=== PATIENT | female | born 1960 | race Caucasian/White ===

== ENCOUNTER 2017-05-03 18:27 | Emergency (ER) | payer OTHER, MEDICAID ==
[2017-05-03 18:45] VITALS: TEMP 98.1
[2017-05-03] MEDS ORDERED: KETAMINE 100 MG/10 ML SYR IVP ONE (20:09)
[2017-05-03] MEDS ORDERED: DEXAMETHASONE 4 MG/ML VIAL IVP ONE (20:09)
[2017-05-03] MEDS ORDERED: LORazepam 2 MG/ML INJ IVP ONE (20:10)
[2017-05-03] MEDS ORDERED: OXYCODONE/APAP 5/325 TAB PO ONE (20:10)
--- NOTE | 2017-05-03 20:11 | EDPHY ---
H & P Time Seen by Provider: 05/03/17 19:57 HPI/ROS: CHIEF COMPLAINT: Back pain HISTORY OF PRESENT ILLNESS: Patient has history of chronic back pain and is seen by Dr. Josafat Mathews also [facility] for pain management. She is scheduled for an epidural steroid injection on the of this month. She typically takes Percocet and Flexeril and took 3 yesterday but none since last night. Her pain has been worse today in the right lower back radiating to her right hip and right outer leg. Symptoms severe and worse with any movement. REVIEW OF SYSTEMS: Eye: no change in vision ENT: no sore throat Cardiac: no chest pain or syncope Pulmonary: no cough or SOB Abdomen: no vomiting, diarrhea, abdominal pain Musculoskeletal: HPI, no recent injury fall or direct trauma. Skin: no rash Neuro: no headache, no weakness or numbness in lower extremities. Constitutional: no fever : no urinary symptoms, no urinary or fecal incontinence. A comprehensive 10 point review of systems is otherwise negative aside from elements mentioned in the history of present illness. PAST MEDICAL HISTORY: Chronic back pain, tubal ligation Social history: Former smoker, quit 1 month ago. No IV drugs General Appearance: Alert and conversant, cooperative. Eyes: No scleral icterus. ENT, Mouth: Normal mucous membranes. Respiratory: Normal respiratory effort, breath sounds equal, lungs are clear to auscultation. Cardiovascular: Regular rate and rhythm. Gastrointestinal: Abdomen is soft and non tender. No pulsatile mass. Neurological: Alert and oriented x3. Normally conversant. Face symmetric, normal movement and sensation in all extremities. No clonus, toes downgoing bilaterally, patellar reflexes 2 to 3+ bilaterally. Skin: Warm and dry, no rashes. Musculoskeletal: No peripheral edema and no joint swelling. No midline spine tenderness. Has tenderness over the right sciatic notch. Psychiatric: Patient appears very anxious. Emergency Department course/MDM: Patient is adamant she cannot take any nonsteroidal because of a previous kidney problem. She typically takes Percocet. Plan for 2 oral Percocet, 1 mg IV Ativan, 20 mg IV ketamine, 8 mg IV dexamethasone. Last MRI 2 months ago but not at this hospital. Did not show surgical lesion at that time. 2130: Patient was able to get up and go to the bathroom. She feels a lot more comfortable. She feels that would be reasonable to let her go home at this point she feels a lot better with a lot less pain. I think it is low likelihood she has an acute neurosurgical emergency. Smoking Status: Former smoker Constitutional: Initial Vital Signs Temperature (C) 36.7 C 05/03/17 18:42 Heart Rate 54 L 05/03/17 18:42 Respiratory Rate 18 05/03/17 18:42 Blood Pressure 120/72 05/03/17 18:42 O2 Sat (%) 98 05/03/17 18:42 O2 Delivery Mode Room Air O2 (L/minute) 2 Allergies/Adverse Reactions: No Known Allergies Allergy (Verified 05/03/17 18:40) Home Medications: Medication Instructions Recorded Amitriptyline HCl 75 mg PO HS PRN 01/09/15 Diclofenac Sodium [Voltaren 75 MG 75 mg PO DAILY 01/09/15 (*)] Omeprazole [Prilosec] 40 mg PO DAILY 01/09/15 Ibuprofen 600 mg PO Q6H #30 capsule 01/15/15 oxyCODONE/APAP 5/325 [Percocet 1 - 2 tab PO Q4 PRN #30 tab 01/15/15 5/325 (*)] Chantix 05/03/17 FLUoxetine 05/03/17 Medical Decision Making Differential Diagnosis: Differential diagnosis considered for back pain including but not limited to muscular pain, herniated disc, spine fracture, intra-abdominal causes and urinary tract infection. - Data Points Laboratory Results: Laboratory Results 05/03/17 20:10 05/03/17 20:10 05/03/17 05/03/17 20:10 20:10 WBC 9.11 10^3/uL 10^3/uL (3.80-9.50) RBC 5.13 10^6/uL 10^6/uL (4.18-5.33) Hgb 14.8 g/dL g/dL (12.6-16.3) Hct 44.5 % % (38.0-47.0) MCV 86.7 fL fL (81.5-99.8) MCH 28.8 pg pg (27.9-34.1) MCHC 33.3 g/dL g/dL (32.4-36.7) RDW 13.5 % % (11.5-15.2) Plt Count 267 10^3/uL 10^3/uL (150-400) MPV 9.7 fL fL (8.7-11.7) Neut % (Auto) 63.0 % % (39.3-74.2) Lymph % (Auto) 27.0 % % (15.0-45.0) Sheridan % (Auto) 7.5 % % (4.5-13.0) Eos % (Auto) 1.4 % % (0.6-7.6) Baso % (Auto) 0.7 % % (0.3-1.7) Nucleat RBC Rel Count 0.0 % % (0.0-0.2) Absolute Neuts (auto) 5.74 10^3/uL 10^3/uL (1.70-6.50) Absolute Lymphs (auto) 2.46 10^3/uL 10^3/uL (1.00-3.00) Absolute Monos (auto) 0.68 10^3/uL 10^3/uL (0.30-0.80) Absolute Eos (auto) 0.13 10^3/uL 10^3/uL (0.03-0.40) Absolute Basos (auto) 0.06 10^3/uL 10^3/uL (0.02-0.10) Absolute Nucleated RBC 0.00 10^3/uL 10^3/uL (0-0.01) Immature Gran % 0.4 % % (0.0-1.1) Immature Gran # 0.04 10^3/uL 10^3/uL (0.00-0.10) Sodium 133 mEq/L L mEq/L (134-144) Potassium 4.5 mEq/L mEq/L (3.5-5.2) Chloride 103 mEq/L mEq/L (97-110) Carbon Dioxide 20 mEq/l L mEq/l (22-31) Anion Gap 10 mEq/L mEq/L (8-16) BUN 14 mg/dL mg/dL (7-23) Creatinine 0.8 mg/dL mg/dL (0.6-1.0) Estimated GFR > 60 Glucose 85 mg/dL mg/dL (70-100) Calcium 9.5 mg/dL mg/dL (8.5-10.4) Specimen Hemolysis 100 Medications Given: Discontinued Medications Dexamethasone (Decadron Injection) 8 mg IVP EDNOW ONE Stop: 05/03/17 20:10 Last Admin: 05/03/17 20:24 Dose: 8 mg Ketamine HCl (Ketamine) 20 mg IVP EDNOW ONE Stop: 05/03/17 20:10 Last Admin: 05/03/17 20:25 Dose: 20 mg Lorazepam (Ativan Injection) 1 mg IVP EDNOW ONE Stop: 05/03/17 20:11 Last Admin: 05/03/17 20:24 Dose: 1 mg Oxycodone/Acetaminophen (Percocet 5/325) 2 tab PO EDNOW ONE Stop: 05/03/17 20:11 Last Admin: 05/03/17 20:24 Dose: 2 tab Departure - Departure Disposition: Home, Routine, Self-Care Clinical Impression: Acute low back pain Qualifiers: Back pain laterality: right Sciatica presence: with sciatica Sciatica laterality: sciatica of right side Qualified Code(s): M54.41 - Lumbago with sciatica, right side Condition: Good Instructions: Acute Low Back Pain (ED) Referrals: Casey Garcia MD [Primary Care Provider] - As per Instructions
[2017-05-03 20:16] LABS: % IMMATURE GRANULYOCYTES 0.4 % (0.0-1.1); ABSOLUTE IMMATURE GRANULOCYTES 0.04 10^3/uL (0.00-0.10); ADD DIFF? NO; ADD MORPH? NO; ADD SCAN? NO; ATYPICAL LYMPHOCYTE FLAG 10 (0-99); FRAGMENT RBC FLAG 0 (0-99); HEMATOCRIT 44.5 % (38.0-47.0); HEMOGLOBIN 14.8 g/dL (12.6-16.3); LEFT SHIFT FLG 0 (0-99); LIPEMIA HEMOLYSIS FLAG 80 (0-99); MEAN CELL HEMOGLOBIN 28.8 pg (27.9-34.1); MEAN CELL HEMOGLOBIN CONCENTR. 33.3 g/dL (32.4-36.7); MEAN CELL VOLUME 86.7 fL (81.5-99.8); MEAN PLATELET VOLUME 9.7 fL (8.7-11.7); PLATELET CLUMPS FLAG 0 (0-99); PLATELET COUNT 267 10^3/uL (150-400); RED BLOOD CELL COUNT 5.13 10^6/uL (4.18-5.33); RED CELL DISTRIBUTION WIDTH 13.5 % (11.5-15.2)
[2017-05-03 20:31] LABS: ANION GAP 10 mEq/L (8-16); CALCIUM 9.5 mg/dL (8.5-10.4); CARBON DIOXIDE 20 mEq/l (22-31); CHLORIDE 103 mEq/L (97-110); CREATININE 0.8 mg/dL (0.6-1.0); GLOMERULAR FILTRATION RATE > 60; GLUCOSE 85 mg/dL (70-100); POTASSIUM 4.5 mEq/L (3.5-5.2); SODIUM 133 mEq/L (134-144); SPECIMEN HEMOLYSIS 100
[2017-05-03 21:46] VITALS: RESP 16
[2017-05-03 22:09] VITALS: BP 129/73; PULSE 55; O2SAT 97
== END 2017-05-03 22:10 | disposition home or self-care (01) ==
DX: M54.41 Lumbago with sciatica, right side (principal); Z87.891 Personal history of nicotine dependence
CPT/HCPCS: 96374; 96375; 99284; J1100; J2060

== ENCOUNTER 2018-05-09 08:08 | Observation (INO) | payer OTHER, MEDICAID ==
[2018-05-09] MEDS ORDERED: SURGIFLO MATRIX KIT WITH THROMBIN 8 ML TP ONE (08:16)
[2018-05-09] MEDS ORDERED: THROMBIN (BOVINE) 20,000 UNIT VIAL TP ONE (08:16)
[2018-05-09] MEDS ORDERED: CHLORHEXIDINE GLUC HIBICLENS 118 ML BTL TP ONE (08:17)
[2018-05-09] MEDS ORDERED: BACITRACIN 50,000 UNITS/10 ML SYR IRR ONE (08:17)
[2018-05-09] MEDS ORDERED: GABAPENTIN 300 MG CAP PO ONE (08:29)
[2018-05-09] MEDS ORDERED: ACETAMINOPHEN 500 MG TAB PO ONE (08:29)
[2018-05-09] MEDS ORDERED: ceFAZolin 2 GM/DEXTROSE 100 ML IV ONE (08:29)
[2018-05-09] MEDS ORDERED: LR 1,000 ML IV ONE (08:32)
[2018-05-09] MEDS ORDERED: MIDAZOLAM 2 MG/2 ML VIAL IVP ONE (08:46)
--- NOTE | 2018-05-09 08:46 | PDANEPAE ---
ANE History of Present Illness C5-7 ACDF ANE Past Medical History - Cardiovascular History Hx Hypertension: No Hx Arrhythmias: No Hx Chest Pain: No Hx Coronary Artery / Peripheral Vascular Disease: No Hx CHF / Valvular Disease: No Hx Palpitations: No Cardiovascular History Comment: has been told she has a low heart rate - Pulmonary History Hx COPD: No Hx Asthma/Reactive Airway Disease: No Hx Recent Upper Respiratory Infection: No Hx Oxygen in Use at Home: No Hx Sleep Apnea: No Sleep Apnea Screening Result - Last Documented: Negative Pulmonary History Comment: has ventolin inhaler to use prn- instructed pt to bring to hospital. recently quit smoking a month ago- still on chantix - Neurologic History Hx Cerebrovascular Accident: No Hx Seizures: No Hx Dementia: No Neurologic History Comment: PANIC ATTACKS ARE SIMILAIR TO SEIZURES- ARMS GO NUMB , WEAKNESS TO EXTREMITIES - Endocrine History Hx Diabetes: No - Renal History Hx Renal Disorders: No Renal History Comment: hx of adrenalectomy d/t adrenal mass in 2014 - Liver History Hx Hepatic Disorders: No - Neurological & Psychiatric Hx Hx Neurological and Psychiatric Disorders: Yes Neurological / Psychiatric History Comment: anxiety. depression - Cancer History Hx Cancer: No - Congenital Disorder History Hx Congenital Disorders: No - GI History Hx Gastrointestinal Disorders: Yes Gastrointestinal History Comment: reflux. chronic constipation from medications - Other Health History Other Health History: wears reading glasses. chronic pain - Chronic Pain History Chronic Pain: Yes (to lower back) - Surgical History Prior Surgeries: lap left adrenalectomy with Bangura 01/13/15. TUBAL LIGATION 1998 ANE Review of Systems Review of systems is: negative Review of Systems: - Exercise capacity METS (RN): 4 METS ANE Patient History - Allergies Allergies/Adverse Reactions: No Known Allergies Allergy (Verified 04/10/18 10:15) - Home Medications Home medications: home medication list seen and reviewed Home Medications: Chantix 05/03/17 [Last Taken 05/08/18] Hydroxyzine HCl PRN 04/10/18 [Last Taken 05/08/18] Linzess 04/10/18 [Last Taken 05/08/18] Ranitidine HCl HS 04/10/18 [Last Taken 05/07/18] Tizanidine HCl PRN 04/10/18 [Last Taken 05/07/18] Ventolin Hfa 04/10/18 [Last Taken 05/08/18 19:00] oxyCODONE/APAP 5/325 [Percocet 5/325 (*)] 04/10/18 [Last Taken 05/08/18 19:00] - NPO status NPO Status: no food or drink >8 hours - Anes Hx Anes Hx: no prior problems - Smoking Hx Smoking Status: Former smoker - Family Anes Hx Family Anes Hx: none Family Hx Anesthesia Complications: none ANE Labs/Vital Signs - Vital Signs Vital Signs: reviewed preoperatively; see RN documention for details Height: 173.99 cm Weight: 81.647 kg ANE Physical Exam - Airway Neck exam: FROM Mallampati Score: Class 2 Mouth exam: poor dentition - Pulmonary Pulmonary: no respiratory distress - Cardiovascular Cardiovascular: regular rate and rhythym - ASA Status ASA Status: II ANE Anesthesia Plan Anesthesia Plan: general endotracheal anesthesia Urgent/Emergent Case: Annalee diaz completed preop but documented later for safe timely pt care
--- NOTE | 2018-05-09 09:21 | PDHPUP ---
History & Physical Update H&P update statement: This history and physical update is based on an assessment of the patient which was completed after admission or registration (within 24 hours), but prior to the surgery/procedure. H&P update: H&P reviewed & patient examined, no change in patient's condition since H&P completed (Consents signed and site marked. All questions answered.)
[2018-05-09] MEDS ORDERED: LIDOCAINE 2% 100 MG/5 ML SYR ONE (09:52)
[2018-05-09] MEDS ORDERED: ROCURONIUM 50 MG/5 ML VIAL ONE (09:52)
[2018-05-09] MEDS ORDERED: ONDANSETRON 4 MG/2 ML VIAL ONE (09:52)
[2018-05-09] MEDS ORDERED: REMIFENTANIL HCL 1 MG VIAL ONE (09:52)
[2018-05-09] MEDS ORDERED: HYDROmorphONE/DILAUDID 2 MG/ML INJ ONE (09:52)
[2018-05-09] MEDS ORDERED: fentaNYL 100 MCG/2 ML INJ ONE ×2 (09:52→12:29)
[2018-05-09] MEDS ORDERED: DEXAMETHASONE 4 MG/ML VIAL ONE (09:52)
[2018-05-09] MEDS ORDERED: PROPOFOL/EMULSION 500 MG/50 ML BOTTLE IV ONE (09:53)
[2018-05-09] MEDS ORDERED: PROPOFOL 200 MG/20 ML VIAL ONE (09:53)
[2018-05-09] MEDS ORDERED: BUPIVACAINE 0.5% 30 ML SDV ONE (10:36)
[2018-05-09] MEDS ORDERED: NALOXONE HCL 0.4 MG/ML INJ IVP PRN (10:58)
[2018-05-09] MEDS ORDERED: HYDROCODONE/APAP 5/325 TAB PO PRN (10:58)
[2018-05-09] MEDS ORDERED: MEPERIDINE 25 MG/0.5 ML AMP IVP PRN (10:58)
[2018-05-09] MEDS ORDERED: ACETAMINOPHEN 500 MG TAB PO PRN (10:58)
[2018-05-09] MEDS ORDERED: ALBUTEROL 3 ML DEYVIAL IH PRN (10:58)
[2018-05-09] MEDS ORDERED: PROMETHAZINE HCL 25 MG/ML INJ IVP PRN (10:58)
[2018-05-09] MEDS ORDERED: LABETALOL HCL 5 MG/ML 20 ML MDV IVP PRN (10:58)
[2018-05-09] MEDS ORDERED: ONDANSETRON 4 MG/2 ML VIAL IVP PRN ×2 (10:58→12:30)
[2018-05-09] MEDS ORDERED: DEXAMETHASONE 4 MG/ML VIAL IVP PRN (10:58)
[2018-05-09] MEDS ORDERED: oxyCODONE IR 5 MG TAB PO PRN (10:58)
--- NOTE | 2018-05-09 10:59 | POSTANESTH ---
Post Anesthetic Evaluation Cardiovascular Status: Normal, Stable, Similar to Pre-Op Cond Respiratory Status: Similar to Pre-op Cond. Level of Consciousness/Mental Status: Can Participate in Eval, Mildly Sleepy, Arousable Pain Control: Adequate, Prn Tx Ordered Nausea/Vomiting Control: Adequate, Prn Tx Ordered Complications Possibly Related to Anesthesia: None Noted
[2018-05-09] MEDS ORDERED: BISACODYL 10 MG SUPP PR PRN (12:30)
[2018-05-09] MEDS ORDERED: MAGNESIUM HYDROXIDE 30 ML UDCUP PO PRN (12:30)
[2018-05-09] MEDS ORDERED: diphenhydrAMINE 25 MG CAP PO PRN (12:30)
[2018-05-09] MEDS ORDERED: POLYETHYLENE GLYCOL 3350 17 GM PKT PO PRN (12:30)
[2018-05-09] MEDS ORDERED: LACTULOSE 20 GM/30 ML UDCUP PO PRN (12:30)
[2018-05-09] MEDS ORDERED: ONDANSETRON DISINTEGRATING 4 MG TAB PO PRN (12:30)
[2018-05-09] MEDS: fentaNYL 100 MCG/2 ML INJ IVP PRN ×2 (12:32→12:38)
[2018-05-09] MEDS ORDERED: METHOCARBAMOL 1,000 MG in NS 50 ML IVP ONE (12:35)
--- NOTE | 2018-05-09 12:38 | POSTOPPROG ---
Post Op Note Date of Operation: 05/09/18 Surgeon: Jm Mejia Painter And Decorator Apprentice: CJ Granado PAC Anesthesia: GET(General Endotracheal) Pre-op Diagnosis: cervical stenosis Post-op Diagnosis: cervical stenosis Indication: cervical stenosis Procedure: ACDF C5-7 Inf/Abcess present in the surg proc area at time of surgery?: No EBL: Minimal PA Addendum - Addendum .: S: Posterior neck pain O: NAD A&OX3 MAEX4 5/5 = BUE and BLE. Incision C/D/I A/P 57F s/p ACDF C5-7 -Post op xrays pending -Advance diet as tolerated -Optimize pain management -Hard collar at all times other than shower -DVT prophx: TEDs, SCDs, Lovenox okay POD3 -Please notify NS with any change in neuro/motor exam
[2018-05-09] MEDS ORDERED: HYDROmorphONE/DILAUDID 1 MG/ML INJ ONE (12:49)
[2018-05-09] MEDS: HYDROmorphONE/DILAUDID 1 MG/ML INJ IVP PRN ×3 (12:50→13:15)
--- NOTE | 2018-05-09 13:19 | GOP ---
DATE OF OPERATION: 05/09/2018 SURGEON: Jm Mejia MD RN PROVIDER RELATIONS: ERLINDA Lepe ANESTHESIA: General. PREOPERATIVE DIAGNOSIS: 1. C5 through C7 cervical spondylosis with stenosis. 2. Myelopathy. 3. Radiculopathy. 4. Treatment refractory to nonoperative intervention. POSTOPERATIVE DIAGNOSIS: 1. C5 through C7 cervical spondylosis with stenosis. 2. Myelopathy. 3. Radiculopathy. 4. Treatment refractory to nonoperative intervention. PROCEDURE PERFORMED: 1. Anterior arthrodesis with approach to C5, C6, and C7. 2. C5-C6 diskectomy with bilateral foraminotomies, osteophytectomies, and interbody fusion using a 7 x 14 x 11 mm titanium-coated PEEK cage filled with morselized autograft and allograft. 3. C6-C7 diskectomy with bilateral foraminotomies, osteophytectomies, and interbody fusion using a 7 x 14 X 11 mm titanium-coated PEEK cage filled with morselized autograft and allograft. 4. Anterior cervical fusion C5, C6, and C7 with a [employer] Bartlett 37.5 mm translational plate. 5. Use of intraoperative fluoroscopy, less than 1 hour physician time. 6. Use of neuromonitoring. 7. Use of the operating microscope. FINDINGS: per imaging SPECIMENS: None. ESTIMATED BLOOD LOSS: 10 mL. INDICATIONS: The patient is a 57-year-old woman who was found to be myelopathic with radiculopathy on examination. She had evidence of spinal stenosis C5-C6 and C6-C7. After discussion of the risks, benefits, and treatment alternatives and after failing nonoperative intervention, we decided to proceed forth with surgery as described above. DESCRIPTION OF PROCEDURE: Patient was brought to the operating theater and underwent general endotracheal anesthesia without complication. She had Venodynes, LOREN hose, and the appropriate lines placed by Anesthesia. Her head was placed in slight extension. All bony processes were inspected and padded. Using lateral fluoroscopy and a spinal needle, we picked our entry point at the C5 through C7 levels. This was marked as a transverse incision on the right side of her neck. This area was then prepped and draped in the usual sterile surgical fashion. A time-out was completed per protocol, and the patient received antibiotics within 1 hour of incision. The incision was taken down initially with a scalpel blade, and using monopolar , taken down through subcutaneous tissues to the level of the platysma. The platysma was over-mined in the cranial and caudal directions. A Weitlaner was placed to maintain our exposure. We opened the fibers of the platysma cranially and caudally. Using both blunt and sharp dissection, we then traveled in a plane medial to the carotid sheath and lateral to the esophagus and trachea to reach the prevertebral fascia. We placed a bayonetted needle into the disk space of C5-C6 and confirmed our level using lateral fluoroscopy. We elevated the longus colli muscle from the anterior vertebral bodies of C5, C6, and C7, and deep retractors were placed to maintain our exposure. The microscope was brought into the field to assist with microscopic dissection and to maintain illumination and magnification. We placed a Centerpoint pin into the vertebral body of C5 and C6 and placed C5-C6 into mild distraction. We completed a C5-C6 diskectomy with bilateral foraminotomies and osteophytectomies. We prepared the cartilaginous endplates and measured the interbody space. We placed a 7 x 14 x 11 mm titanium-coated PEEK cage filled with morselized autograft and allograft into the C5-C6 disk space. We removed the Centerpoint pin from C5, placed it into C7 and placed C6-C7 into mild distraction. We completed a C6-7 diskectomy with bilateral foraminotomies and osteophytectomies. We prepared the cartilaginous endplates and measured interbody space. We placed a 7 x 14 x 11 mm titanium-coated PEEK cage filled with morselized autograft and allograft into the C6-C7 disk space. We removed the Centerpoint pins and drilled down the anterior osteophytes and secured a 37.5 mm [employer] Bartlett translational plate onto the vertebral bodies of C5, C6, and C7. AP and lateral x-rays demonstrated good placement of the hardware. The wound was irrigated copiously with bacitracin irrigation. We obtained hemostasis with the bipolar. The wound was closed in multiple layers using Vicryl sutures for the deep layers and Dermabond for the skin. The patient's wounds were dressed sterilely. She was awakened, extubated, and taken to the recovery room in stable condition. There were no complications and no noted changes on neuromonitoring throughout the procedure. COMPLICATIONS: None. /[id number]/MODL MTDD
[2018-05-09] MEDS: ACETAMINOPHEN 500 MG TAB PO SCH ×2 (15:47→22:06)
[2018-05-09] MEDS: NS 1,000 ML IV SCH (16:04)
[2018-05-09] MEDS: oxyCODONE IR 5 MG TAB PO PRN ×3 (16:07→20:01)
[2018-05-09] MEDS: SENNOSIDES/DOCUSATE SODIUM TAB PO SCH (20:02)
[2018-05-10] MEDS: oxyCODONE IR 5 MG TAB PO PRN ×2 (01:07→07:51)
[2018-05-10] MEDS: ACETAMINOPHEN 500 MG TAB PO SCH (05:18)
[2018-05-10] MEDS: NS 1,000 ML IV SCH (05:40)
[2018-05-10 07:30] VITALS: BP 121/63
[2018-05-10] MEDS: SENNOSIDES/DOCUSATE SODIUM TAB PO SCH (07:51)
[2018-05-10] MEDS ORDERED: ALBUTEROL 60 PUFFS/8 GM MDI IH PRN (08:07)
[2018-05-10] MEDS ORDERED: oxyCODONE IR 15 MG TAB PO PRN (08:07)
--- NOTE | 2018-05-10 08:12 | NEUSURGPN ---
Date of Surgery: 05/09/18 Post Op Day: 1 Assessment/Plan: Assessment: 57F s/p ACDF C5-7 POD#1 Plan: -Post op xrays show stable hardware placement -Advance diet as tolerated -Optimize pain management, patient has a pain management physician she sees as out patient -Hard collar at all times other than shower -DVT prophx: TEDs, SCDs, Lovenox okay POD3 -Ok to discharge home -Discusses patient with Dr Mejia who saw patient as well -Please notify NS with any change in neuro/motor exam Subjective: Sitting up in chair eating breakfast, feels sore in shoulders Objective: AxO x3 PERRLA, EOMI No eye or facial droop 5/5 BUE, BLE Dressing CDI Collar in place Neuro Check Frequency: per routine Urinary Catheter in Place: No - Physician Discussed Patient with Dr.: Mejia Patient Seen by : Jackie Neurosurgery Physical Exam - Vitals, I&O, Labs I and O 05/09/18 05/10/18 05/11/18 05:59 05:59 05:59 Intake Total 1260 Output Total 1325 Balance -65 Weight 81.647 kg Intake: Oral (ml) 360 IV Intake (ml) 900 Output: Urine (ml) 1300 Toilet 1300 Estimated Blood Loss (ml) 25 Other: Number of Voids Toilet 1 Vital Signs Temp Pulse Resp BP Pulse Ox 36.9 C 55 L 20 121/63 H 95 05/10/18 07:29 05/10/18 07:29 05/10/18 07:29 05/10/18 07:29 05/10/18 07:29 ICD10 Worksheet Patient Problems: Problems Problem Status Onset Back pain Acute
--- NOTE | 2018-05-10 11:07 | PDIAF ---
- Diagnosis Diagnosis: S/P ACDF C5-7 Code Status: Full Code - Medication Management Discharge Medications: Medications to Continue on Transfer Varenicline Tartrate [Chantix 1MG (*)] 1 mg PO HS 05/03/17 [Last Taken 05/08/18] Albuterol [Proventil Inhaler HFA (*)] 1 - 2 puffs IH Q4H PRN 04/10/18 [Last Taken 05/08/18 21:00] Linaclotide [Linzess] 290 mcg PO DAILY16 04/10/18 [Last Taken 05/08/18] Ranitidine HCl [Zantac] 300 mg PO HS 04/10/18 [Last Taken 05/06/18] hydrOXYzine HCL [hydrOXYzine HCL (RX)] 25 - 50 mg PO Q8HRS PRN 04/10/18 [Last Taken 05/08/18 21:00 50MG] Acetaminophen [Tylenol 325mg (*)] 325 mg PO DAILY PRN 05/09/18 [Last Taken Unknown] oxyCODONE IR [Oxycodone Ir (*)] 15 mg PO QID PRN 05/09/18 [Last Taken 05/08/18 21:00] Sennosides/Docusate Sodium [Senokot-S] 1 - 2 tab PO BID tab 05/10/18 [Last Taken Unknown] oxyCODONE IR [Oxycodone Ir (*)] 5 - 10 mg PO Q4-6PRN PRN #70 tab 05/10/18 [Last Taken Unknown] tiZANidine HCL [Zanaflex 2MG (*)] 4 mg PO TID PRN #50 tab 05/10/18 [Last Taken Unknown] Discharge Medications: Refer to the Discharge Home Medication list for PRN reason. - Orders Services needed: Physical Therapy, Occupational Therapy Isolation Type: None Diet Recommendation: no restrictions on diet Diet Texture: Regular Texture Diet, Thin Liquids, Meds Crushed in Puree Caba: Not applicable Activity/Weight Bearing Restrictions: Do not lift greater than 10 pounds Additional Instructions: No bending or twisting neck Do not lift greater than 10 pounds Wear collar at all times Ok to shower Tuesday05/12/18 - Follow Up Care Current Providers and Referrals: Casey Garcia MD [Primary Care Provider] - Jm Mejia MD [Medical Doctor] - follow up in 2 weeks
--- NOTE | 2018-05-10 17:58 | ASMTCMCOM ---
CM Note CM Note Notes: Spoke w/PT, she recommends SNF. CM spoke with pt re; dc poc, she is at home in [place] and alone most of the day as her boyfriend works. Pt agreeable to homecare and [facility] accept pt[facility] DC Plan: Home care/ [facility] Date Signed: 05/10/2018 11:20 AM Electronically Signed By:Minoo Roman RN
--- NOTE | 2018-05-10 17:59 | ASMTLACE ---
MYLENE Length of stay for Answers: 1 day current admission Acuity / Level of Answers: No Care: Did the patient have an inpatient admission? Comorbidities - select Answers: Opioid dependence all that apply / Chronic pain # of Emergency department Answers: 0 visits in the last 6 months Social determinants Answers: Mental health diagnosis (anxiety, depression, pers onality disorders, etc.) Score: 8 Date Signed: 05/10/2018 11:21 AM Electronically Signed By:Minoo Roman RN
[2018-05-10] MEDS ORDERED: FAMOTIDINE 20 MG TAB PO SCH (21:00)
[2018-05-10] MEDS ORDERED: VARENICLINE TARTRATE 1 MG TAB PO SCH (21:00)
--- NOTE | 2018-05-11 10:31 | ASDISCHSUM ---
Discharge Information Plan Status: Medically Cleared to Leave: Discharge Date:05/10/2018 12:41 PM D/C Disposition: [facility] D/C Disposition:[id number] Projected Discharge Date:05/10/2018 11:00 AM Transportation at D/C: Discharge Delay Reason: Follow-Up Date:05/10/2018 11:00 AM Discharge Slot: Final Diagnosis: Placement Information Referral Type:*Home Health Care Services Referral ID:[id number] Provider Name:[facility] Address 1:[address] Phone Number: Address 2: [address] Fax Number: City:[place] Selection Factors: State:[place] Patient Contact Information Contact Name:KAVON Relationship:Other Address: City: [facility] Phone: [facility] Code: Email: Financial Information Financial Class:Medicare Primary Plan Desc:MEDICARE OUTPATIENT Primary Plan Number:[id number] Secondary Plan Desc:MEDICAID [place] Secondary Plan Number:[id number] Assessment Information LACE LACE Length of stay for Answers: 1 day current admission Acuity / Level of Answers: No Care: Did the patient have an inpatient admission? Comorbidities - select Answers: Opioid dependence all that apply / Chronic pain # of Emergency department Answers: 0 visits in the last 6 months Social determinants Answers: Mental health diagnosis (anxiety, depression, pers onality disorders, etc.) Score: 8 Date Signed: 05/10/2018 11:21 AM Electronically Signed By:Minoo Roman RN [facility] Progress Note CM Note CM Note Notes: Spoke w/PT, she recommends SNF. CM spoke with pt re; dc poc, she is at home in [place] and alone most of the day as her boyfriend works. Pt agreeable to homecare and [facility] ptDinesh KEYS Plan: Home care/ [facility] Date Signed: 05/10/2018 11:20 AM Electronically Signed By:Minoo Roman RN Case Management Discharge Plan Note Case Management Discharge Discharge Order Complete? Answers: Yes Patient to Obtain Answers: Independently Medications Transportation Arranged Answers: Family/Friends Faxed Final Orders Answers: Yes Agency/Facility Transfer Answers: Yes Report Printed & Faxed to Receiving Agency Family Notified Answers: Yes Discharge Comments Notes: D/w [employer], final orders faxed. Mar[facility] at [facility] notified Intervention Information
[2018-05-12] MEDS ORDERED: ENOXAPARIN 40 MG/0.4 ML SYR SC SCH (09:00)
== END 2018-05-10 12:41 | disposition home health service (06) ==
LOC: FSGY 08:08 → F3N 12:30
PROVIDERS: ADMIT Neurological Surgery; ATTEND Neurological Surgery
DX: M47.12 Other spondylosis with myelopathy, cervical region (principal); M54.12 Radiculopathy, cervical region; M48.02 Spinal stenosis, cervical region
CPT/HCPCS: 22551; 22552; 72040; 76001; 92610; 97116; 97162; 97166; C1713; G8978; G8979; G8987; G8988; G8989; G8996; G8997; J0690; J1100; J1170; J2001; J2250; J2270; J2405; J2704; J2800; J3010

== ENCOUNTER 2018-08-03 04:58 | Inpatient (IN) | payer OTHER, MEDICAID ==
[2018-08-03] MEDS ORDERED: GABAPENTIN 300 MG CAP PO ONE (06:02)
[2018-08-03] MEDS ORDERED: morphINE PF 0.2 MG in SYRINGE INTRATHECAL 1 SYR IT ONE (06:02)
[2018-08-03] MEDS ORDERED: ACETAMINOPHEN 500 MG TAB PO ONE (06:02)
[2018-08-03] MEDS ORDERED: morphINE SR 15 MG TAB PO ONE (06:02)
[2018-08-03] MEDS ORDERED: ceFAZolin 2 GM/DEXTROSE 100 ML IV ONE (06:02)
[2018-08-03] MEDS ORDERED: LIDOCAINE 1% 2 ML INJ ID PRN (06:03)
[2018-08-03] MEDS ORDERED: LR 1,000 ML IV ONE (06:03)
[2018-08-03] MEDS ORDERED: BUPIVACAINE/EPI 0.25% 30 ML SDV ONE (06:35)
[2018-08-03] MEDS ORDERED: CHLORHEXIDINE GLUC HIBICLENS 118 ML BTL TP ONE (06:35)
[2018-08-03] MEDS ORDERED: BACITRACIN 50,000 UNITS/10 ML SYR IRR ONE ×2 (06:35→07:13)
[2018-08-03] MEDS ORDERED: THROMBIN (BOVINE) 20,000 UNIT VIAL TP ONE (06:35)
[2018-08-03] MEDS ORDERED: MIDAZOLAM 2 MG/2 ML VIAL IVP ONE (06:58)
[2018-08-03] MEDS ORDERED: MIDAZOLAM 2 MG/2 ML VIAL ONE (06:58)
--- NOTE | 2018-08-03 06:58 | PDANEPAE ---
ANE Past Medical History - Cardiovascular History Hx Hypertension: No Hx Arrhythmias: No Hx Chest Pain: No Hx Coronary Artery / Peripheral Vascular Disease: No Hx CHF / Valvular Disease: No Hx Palpitations: No Cardiovascular History Comment: has been told she has a low heart rate - Pulmonary History Hx COPD: No Hx Asthma/Reactive Airway Disease: No Hx Recent Upper Respiratory Infection: No Hx Oxygen in Use at Home: No Hx Sleep Apnea: No Sleep Apnea Screening Result - Last Documented: Negative Pulmonary History Comment: has ventolin inhaler to use prn- instructed pt to bring to hospital. quit smoking in march- continues on chantix - Neurologic History Hx Cerebrovascular Accident: No Hx Seizures: No Hx Dementia: No Neurologic History Comment: PANIC ATTACKS ARE SIMILAIR TO SEIZURES- ARMS GO NUMB , WEAKNESS TO EXTREMITIES - Endocrine History Hx Diabetes: No - Renal History Hx Renal Disorders: No Renal History Comment: hx of adrenalectomy d/t adrenal mass in 2014 - Liver History Hx Hepatic Disorders: No - Neurological & Psychiatric Hx Hx Neurological and Psychiatric Disorders: Yes Neurological / Psychiatric History Comment: anxiety. depression - Cancer History Hx Cancer: No - Congenital Disorder History Hx Congenital Disorders: No - GI History GERD: no, mild Hx Gastrointestinal Disorders: Yes Gastrointestinal History Comment: reflux. chronic constipation from medications - Other Health History Other Health History: wears reading glasses. chronic pain - Chronic Pain History Chronic Pain: Yes (to lower back) - Surgical History Prior Surgeries: 05/09/18 c5-7 ACDF with instrumentation with Jackie. lap left adrenalectomy with Willem 01/13/15. TUBAL LIGATION 1998 ANE Review of Systems Review of Systems: - Exercise capacity Exercise capacity: >=4 METS METS (RN): 4 METS ANE Patient History - Allergies Allergies/Adverse Reactions: No Known Allergies Allergy (Verified 08/01/18 11:00) - Home Medications Home medications: home medication list seen and reviewed Home Medications: Varenicline Tartrate [Chantix 1MG (*)] 1 mg PO BID 05/03/17 [Last Taken 05/08/18 ] Albuterol [Proventil Inhaler HFA (*)] 1 - 2 puffs IH Q4H PRN 04/10/18 [Last Taken 05/08/18 21:00] Linaclotide [Linzess] 290 mcg PO DAILY16 04/10/18 [Last Taken 05/08/18] hydrOXYzine HCL [hydrOXYzine HCL (RX)] 25 - 50 mg PO Q8HRS PRN 04/10/18 [Last Taken 05/08/18 21:00 50MG] oxyCODONE IR [Oxycodone Ir (*)] 15 mg PO QID PRN 05/09/18 [Last Taken 05/08/18 21:00] Acetaminophen [Tylenol ES 500 mg (*)] 1,000 mg PO Q6HRS PRN 07/25/18 [Last Taken Unknown] Cholecalciferol Vit D3 [Vitamin D3 (*)] 1,000 units PO DAILY 07/25/18 [Last Taken Unknown] - NPO status NPO Status: no food or drink >8 hours NPO Since - Liquids (Date): 08/03/18 NPO Since - Liquids (Time): 03:00 NPO Since - Solids (Date): 08/02/18 NPO Since - Solids (Time): 18:00 - Anes Hx Anes Hx: no prior problems - Smoking Hx Smoking Status: Former smoker - Alcohol Use Alcohol Use: None - Family Anes Hx Family Anes Hx: none Family Hx Anesthesia Complications: none ANE Labs/Vital Signs - Vital Signs Vital Signs: reviewed preoperatively; see RN documention for details Blood Pressure: 116/79 Heart Rate: 47 Respiratory Rate: 14 O2 Sat (%): 94 Height: 173.99 cm Weight: 81.647 kg ANE Physical Exam - Airway Neck exam: FROM Mallampati Score: Class 2 Mouth exam: normal dental/mouth exam, poor dentition - Pulmonary Pulmonary: clear to auscultation - Cardiovascular Cardiovascular: regular rate and rhythym - ASA Status ASA Status: II ANE Anesthesia Plan Anesthesia Plan: general endotracheal anesthesia
[2018-08-03] MEDS ORDERED: PROPOFOL/EMULSION 500 MG/50 ML BOTTLE IV ONE ×2 (07:02→08:27)
[2018-08-03] MEDS ORDERED: REMIFENTANIL HCL 1 MG VIAL ONE ×2 (07:03→08:52)
[2018-08-03] MEDS ORDERED: PROPOFOL 200 MG/20 ML VIAL ONE (07:03)
[2018-08-03] MEDS ORDERED: DEXAMETHASONE 4 MG/ML VIAL ONE ×3 (07:14)
[2018-08-03] MEDS ORDERED: fentaNYL 100 MCG/2 ML INJ ONE ×3 (07:17→10:38)
[2018-08-03 07:25] LABS: PLATELET COUNT 241 10^3/uL (150-400)
[2018-08-03] MEDS ORDERED: GLYCOPYRROLATE 0.2 MG/1 ML VIAL ONE ×3 (07:47→10:10)
[2018-08-03] MEDS ORDERED: ePHEDrine SULFATE 25 MG/5 ML SYR ONE ×2 (08:26→08:27)
[2018-08-03] MEDS ORDERED: ROCURONIUM 50 MG/5 ML VIAL ONE (08:26)
[2018-08-03] MEDS ORDERED: ONDANSETRON 4 MG/2 ML VIAL ONE (08:51)
[2018-08-03] MEDS ORDERED: PHENYLEPHRINE HCL 100 MCG/ML SYR IVP PRN (09:30)
[2018-08-03] MEDS ORDERED: ALBUTEROL 3 ML DEYVIAL IH PRN (09:30)
[2018-08-03] MEDS ORDERED: PROMETHAZINE HCL 25 MG/ML INJ IVP PRN (09:30)
[2018-08-03] MEDS ORDERED: HYDROmorphONE/DILAUDID 2 MG/ML INJ IVP PRN (09:30)
[2018-08-03] MEDS ORDERED: oxyCODONE IR 5 MG TAB PO PRN ×2 (09:30→10:43)
[2018-08-03] MEDS ORDERED: LR 500 ML IV PRN (09:30)
[2018-08-03] MEDS ORDERED: METOCLOPRAMIDE 10 MG/2 ML VIAL IVP PRN (09:30)
[2018-08-03] MEDS ORDERED: ONDANSETRON 4 MG/2 ML VIAL IVP PRN ×2 (09:30→10:43)
[2018-08-03] MEDS ORDERED: DIAZEPAM 5 MG/ML 1 ML SYR IVP PRN (09:30)
[2018-08-03] MEDS ORDERED: NALOXONE HCL 0.4 MG/ML INJ IVP PRN (09:30)
[2018-08-03] MEDS ORDERED: MEPERIDINE 25 MG/0.5 ML AMP IVP PRN (09:30)
[2018-08-03] MEDS ORDERED: DEXAMETHASONE 4 MG/ML VIAL IVP PRN (09:30)
--- NOTE | 2018-08-03 09:32 | POSTANESTH ---
Post Anesthetic Evaluation Cardiovascular Status: Normal, Stable Level of Consciousness/Mental Status: Can Participate in Eval Pain Control: Adequate, Prn Tx Ordered Nausea/Vomiting Control: Adequate, Prn Tx Ordered Complications Possibly Related to Anesthesia: None Noted
[2018-08-03] MEDS ORDERED: NEOSTIGMINE METHYLSULFATE 5 MG/5 ML SYR ONE (10:10)
[2018-08-03] MEDS ORDERED: DIAZEPAM 5 MG/ML 1 ML SYR ONE (10:39)
[2018-08-03] MEDS ORDERED: ACETAMINOPHEN 500 MG TAB PO PRN (10:42)
[2018-08-03] MEDS ORDERED: ALBUTEROL 60 PUFFS/8 GM MDI IH PRN ×2 (10:42→11:00)
[2018-08-03] MEDS ORDERED: tiZANidine HCL 2 MG TAB PO PRN (10:42)
[2018-08-03] MEDS ORDERED: hydrOXYzine HCL 25 MG TAB PO PRN (10:42)
[2018-08-03] MEDS ORDERED: oxyCODONE IR 15 MG TAB PO PRN (10:42)
[2018-08-03] MEDS ORDERED: LACTULOSE 20 GM/30 ML UDCUP PO PRN (10:43)
[2018-08-03] MEDS ORDERED: BISACODYL 10 MG SUPP PR PRN (10:43)
[2018-08-03] MEDS ORDERED: ONDANSETRON DISINTEGRATING 4 MG TAB PO PRN (10:43)
[2018-08-03] MEDS ORDERED: POLYETHYLENE GLYCOL 3350 17 GM PKT PO PRN (10:43)
[2018-08-03] MEDS ORDERED: diphenhydrAMINE 25 MG CAP PO PRN (10:43)
[2018-08-03] MEDS ORDERED: MAGNESIUM HYDROXIDE 30 ML UDCUP PO PRN (10:43)
[2018-08-03] MEDS ORDERED: METHOCARBAMOL 1,000 MG in NS 50 ML IV ONE (10:48)
[2018-08-03] MEDS: fentaNYL 100 MCG/2 ML INJ IVP PRN ×2 (11:00→11:26)
--- NOTE | 2018-08-03 11:04 | POSTOPPROG ---
<Ellen Granado - Last Filed: 08/03/18 11:01> Post Op Note Date of Operation: 08/03/18 Surgeon: Jm Mejia Flow Coordinator: CJ Granado PAC Anesthesia: GET(General Endotracheal) Pre-op Diagnosis: foraminal stenosis, radiculopathy Post-op Diagnosis: foraminal stenosis, radiculopathy Indication: foraminal stenosis, radiculopathy Procedure: right sided L3/4 TLIF/laminectomy PSF Inf/Abcess present in the surg proc area at time of surgery?: No EBL: 50-100 Drains: Shad CAGLE Addendum - Addendum .: S: Resting comfortably O: NAD A&Ox3 MAEx4 5/5 and equal in BUE and BLE A/P 57y/o female s/p L3/4 right sided TLIF/PSF -Advance diet as tolerated -Optimize pain management -PT/OT -JPx1 -DVT prophx: TEDs, SCDs, Lovenox POD1 -LSO when OOB -Post op xrays pending -Please notify NS with any change in neuro/motor exam <Jm Mejia - Last Filed: 08/03/18 16:29> Post Op Note Date of Operation: 08/03/18 Surgeon: Jm CAGLE Addendum - Addendum .: Was called by the Nurse of my patient at 4 pm about double vision. Aked to reasess her around 4:30 pm. I was on my way to see the patient at 4:15 pm when a stroke alert was called. Came and evaluated the patient with the stroke team. She does have some left sided complaints, including a sensation of " rocks in her mouth". No obvious neurologic deficits on examination except for some mild dysarthria. Will send to CT for STAT scan and Neurology consult. I have spoken with the family who is at the bedside about the situation but will have to defer to Medicine and Neurology on the next steps.
[2018-08-03] MEDS ORDERED: METHOCARBAMOL 750 MG TAB ONE (11:17)
[2018-08-03] MEDS ORDERED: oxyCODONE IR 5 MG TAB ONE (11:17)
[2018-08-03] MEDS: METHOCARBAMOL 750 MG TAB PO PRN ×2 (11:18→18:08)
--- NOTE | 2018-08-03 11:19 | PDMN ---
Medical Necessity Medical necessity: Pt meets IP criteria as of 08/03/2018 per and [facility] S-820 ( Lumbar Fusion); Medicare IP only procedure.
--- NOTE | 2018-08-03 12:46 | GOP ---
DATE OF OPERATION: 08/03/2018 SURGEON: Jm Mejia MD [employer] ORGANIZER: Ellen Granado PA-C COMPLICATION: None ANESTHESIA: General. PREOPERATIVE DIAGNOSIS: 1. L3-L4 spinal stenosis with lateral recess and foraminal stenosis. 2. Right lower extremity radiculopathy. 3. Refractory to nonoperative intervention. POSTOPERATIVE DIAGNOSIS: 1. L3-L4 spinal stenosis with lateral recess and foraminal stenosis. 2. Right lower extremity radiculopathy. 3. Refractory to nonoperative intervention. PROCEDURE PERFORMED: 1. Posterior arthrodesis with approach to L3-L4. 2. Posterolateral fusion with bilateral pedicle screw placement at L3 and L4 from the [employer] 4.75 system. 3. Use of intraoperative 3D Stealth navigation. 4. Use of intraoperative fluoroscopy, less than 1 hour physician time. 5. Use of neuromonitoring. 6. Use of the operating microscope. 7. Injection of preservative-free intrathecal narcotics. 8. Posterolateral fusion on the left between L3-4 with morselized autograft and allograft. 9. Decompressive laminectomy with right-sided facetectomy, L3-L4. FINDINGS: per imaging SPECIMENS: None. ESTIMATED BLOOD LOSS: 100 mL. INDICATIONS: The patient is a very pleasant, 57-year-old woman who unfortunately suffers from low back pain with right lower extremity radiculopathy. She was found to have myelopathy on clinical examination and underwent cervical surgery to decompress her neck before initiating surgery on her lumbar spine. She now presents for her lumbar surgery. DESCRIPTION OF PROCEDURE: The patient was brought to operating theater and underwent general endotracheal anesthesia without complications. She had Venodynes, LOREN hose, and the appropriate lines placed by Anesthesia. She was flipped prone onto the Shad table and all bony processes inspected and padded. The lower lumbar region was prepped and draped in usual sterile surgical fashion. A time-out was completed per protocol. The patient received antibiotics within 1 hour of incision. Using lateral fluoroscopy and a spinal needle, we picked our entry point to the L3-4 level. This was marked in the midline. The incision was infiltrated with Marcaine with epinephrine. The incision was taken down with the scalpel blade and then using monopolar, taken down the midline through the lumbodorsal fascia. A subperiosteal dissection was carried out to the transverse processes of L3 and L4 bilaterally. Deep retractors were placed to maintain our exposure. We confirmed our level using lateral fluoroscopy. We attached the 3D Stealth navigation clamp to the process of L4 and completed a 3D Stealth navigation spin. Using 3D navigation, we placed the marine pilot holes for the bilateral pedicle screws in L3 and L4. All holes were manually palpated with no evidence of any cortical breaches. We then tapped and placed 6.5 x 45 mm screws bilaterally in L3 and 6.5 x 55 mm screws bilaterally at L4, from the [employer] 4.75 system. Another 3D Stealth navigation spin demonstrated good placement of the hardware. At this point, the microscope was brought into the field to assist with microscopic dissection and to maintain illumination and magnification. Using a combination of the bur tip on the drill, Kerrison punches and Leksell rongeur, we completed a decompressive laminectomy with bilateral medial facetectomies, L3 -L4. We resected the facet joint on the right side L3-4 and completed a foraminotomy. We distracted the interspace and completed a right-sided L3-4 diskectomy. We prepared the cartilaginous endplates and measured the interbody space. We then placed a 7 x 28 mm titanium PEEK elevate cage filled with morselized autograft and allograft anteriorly and towards the midline. We packed additional morcellized autograft in the disk space for the interbody fusion. We let down the distraction and decorticated the bone on the left side between L3 and L4. We placed 2 lordotic rods into the heads of the screws between L3 and L4 and secured them down with cap screws which were then tightened per phone technician's setting. We placed morselized autograft and allograft on the left side between L3-4 for the posterolateral fusion. The wound was irrigated copiously with bacitracin irrigation. We injected preservative-free intrathecal narcotics. A drain was left in the subfascial space and the wound then closed in multiple layers including Vicryl sutures to deep layers and Dermabond for the skin. The patient 's wounds were dressed sterilely. She was then flipped supine onto the transfer cart. She was awakened, extubated, and taken to the recovery room in stable condition. There were no complications and no noted changes on neuromonitoring throughout the procedure. /[id number]/MODL MTDD
[2018-08-03] MEDS: NS 1,000 ML IV SCH ×2 (14:22→19:25)
[2018-08-03] MEDS: ACETAMINOPHEN 500 MG TAB PO SCH ×2 (15:08→22:40)
[2018-08-03] MEDS: ceFAZolin 2 GM/DEXTROSE 100 ML IV SCH ×2 (15:13→22:40)
[2018-08-03] MEDS ORDERED: (Linaclotide [Linzess] 290 MCG) PO SCH (16:00)
[2018-08-03] MEDS ORDERED: IOPAMIDOL (ISOVUE 370) 100 ML BTL IV ONE (16:52)
[2018-08-03] MEDS ORDERED: NS 1,000 ML IV ONE ×2 (17:41→20:23)
[2018-08-03] MEDS: ASPIRIN EC 81 MG TAB PO SCH (18:31)
[2018-08-03] MEDS: oxyCODONE IR 15 MG TAB PO PRN ×2 (19:35→22:43)
--- NOTE | 2018-08-03 20:15 | PDHOSCONS ---
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 Apparently patient underwent L3/L4 lami/TLIF/PSF and was doing well in the post operative setting until at around 3pm she developed blurry vision. This progressed over the next hour to blurry vision. At approximately 4pm she also began to complain of difficulty with speech, feeling as if she had a 'rock in her mouth' and some left upper and lower extremity tingling and decreased sensation. At that time a stroke alert was called. At the time of the stroke alert, I evaluated patient at her bedside along with Dr. Mejia--she was noted to have slow and somewhat slurred speech and was complaining of double vision that would resolve if she closed one eye. She did not have any complaints of weakness or numbness anywhere, denied confusion, denied chest pain, fever or chills or other new symptoms. History Information - Allergies/Home Medication List Allergies/Adverse Reactions: No Known Allergies Allergy (Verified 08/01/18 11:00) Home Medications: Varenicline Tartrate [Chantix 1MG (*)] 1 mg PO BID 05/03/17 [Last Taken 08/02/18 ] Albuterol [Proventil Inhaler HFA (*)] 1 - 2 puffs IH Q4H PRN 04/10/18 [Last Taken 08/02/18] Linaclotide [Linzess] 290 mcg PO DAILY16 04/10/18 [Last Taken 08/02/18] hydrOXYzine HCL [hydrOXYzine HCL (RX)] 25 - 50 mg PO Q8HRS PRN 04/10/18 [Last Taken 05/08/18 21:00 50MG] oxyCODONE IR [Oxycodone Ir (*)] 15 mg PO QID PRN 05/09/18 [Last Taken 08/03/18] Acetaminophen [Tylenol ES 500 mg (*)] 1,000 mg PO Q6HRS PRN 07/25/18 [Last Taken Unknown] Cholecalciferol Vit D3 [Vitamin D3 (*)] 1,000 units PO DAILY 07/25/18 [Last Taken Unknown] I have personally reviewed and updated: family history, medical history, social history - Past Medical History asthma, psychiatric history (anxiety and depression) Additional medical history: chronic back pain. cervical and lumbar stenosis. 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 - Surgical History Reports: spinal surgery (cervical fusion, lumbar fusion today) Additional surgical history: adrenalectomy - Family History Positive for: non-pertinent - Social History Smoking Status: Former smoker Alcohol Use: None Drug Use: None Review of Systems Review of Systems: ROS: 10pt was reviewed & negative except for what was stated in HPI & below Physical Exam Physical Exam: Temp Pulse Resp BP Pulse Ox 36.9 C 58 L 16 88/62 L 93 08/03/18 19:14 08/03/18 19:14 08/03/18 19:14 08/03/18 19:14 08/03/18 19:14 O2 (L/minute) 2 Constitutional: no apparent distress, appears nourished Eyes: PERRL, anicteric sclera Ears, Nose, Mouth, Throat: moist mucous membranes, hearing normal Cardiovascular: regular rate and rhythym, no murmur, rub, or gallop Respiratory: no respiratory distress, no rales or rhonchi, clear to auscultation Gastrointestinal: normoactive bowel sounds, soft, non-tender abdomen Genitourinary: no bladder tenderness Skin: warm, normal color Musculoskeletal: full muscle strength Neurologic: AAOx3, CN II-XII Intact, No weakness, No numbness, No facial droop Psychiatric: interacting appropriately, not anxious Lab Data & Imaging Review 08/03/18 06:45 08/03/18 16:20 WBC 7.10 10^3/uL (3.80-9.50) 08/03/18 06:45 RBC 5.23 10^6/uL (4.18-5.33) 08/03/18 06:45 Hgb 14.5 g/dL (12.6-16.3) 08/03/18 06:45 POC Hgb 14.3 gm/dL (12.6-16.3) 08/03/18 16:30 Hct 43.6 % (38.0-47.0) 08/03/18 06:45 POC Hct 42 % (38-47) 08/03/18 16:30 MCV 83.4 fL (81.5-99.8) 08/03/18 06:45 MCH 27.7 pg (27.9-34.1) L 08/03/18 06:45 MCHC 33.3 g/dL (32.4-36.7) 08/03/18 06:45 RDW 14.0 % (11.5-15.2) 08/03/18 06:45 Plt Count 241 10^3/uL (150-400) 08/03/18 06:45 MPV 10.1 fL (8.7-11.7) 08/03/18 06:45 Neut % (Auto) 59.2 % (39.3-74.2) 08/03/18 06:45 Lymph % (Auto) 30.8 % (15.0-45.0) 08/03/18 06:45 [place] % (Auto) 7.6 % (4.5-13.0) 08/03/18 06:45 Eos % (Auto) 1.4 % (0.6-7.6) 08/03/18 06:45 Baso % (Auto) 0.7 % (0.3-1.7) 08/03/18 06:45 Nucleat RBC Rel Count 0.0 % (0.0-0.2) 08/03/18 06:45 Absolute Neuts (auto) 4.20 10^3/uL (1.70-6.50) 08/03/18 06:45 Absolute Lymphs (auto) 2.19 10^3/uL (1.00-3.00) 08/03/18 06:45 Absolute Monos (auto) 0.54 10^3/uL (0.30-0.80) 08/03/18 06:45 Absolute Eos (auto) 0.10 10^3/uL (0.03-0.40) 08/03/18 06:45 Absolute Basos (auto) 0.05 10^3/uL (0.02-0.10) 08/03/18 06:45 Absolute Nucleated RBC 0.00 10^3/uL (0-0.01) 08/03/18 06:45 Immature Gran % 0.3 % (0.0-1.1) 08/03/18 06:45 Immature Gran # 0.02 10^3/uL (0.00-0.10) 08/03/18 06:45 POC Sodium 140 mEq/L (135-145) 08/03/18 16:30 POC Potassium 4.1 mEq/L (3.3-5.0) 08/03/18 16:30 POC Chloride 104 mEq/L (97-110) 08/03/18 16:30 POC BUN 12 mg/dL (7-23) 08/03/18 16:30 BUN 14 mg/dL (7-23) 08/03/18 16:20 Creatinine 0.7 mg/dL (0.6-1.0) 08/03/18 16:20 POC Creatinine 0.7 mg/dL (0.6-1.0) 08/03/18 16:30 Estimated GFR > 60 08/03/18 16:20 POC Glucose 216 mg/dL (70-100) H 08/03/18 16:30 Visualized and Interpreted imaging results: Yes Interpretation: head CT: negative. head/neck CTA: minimal plaque right carotid bulb Assessment & Plan Assessment: 57 yo F with hx of cervical and lumbar stenosis s/p L3/L4 lami/TLIF today with post operative neurologic sxs concerning for CVA # neurologic sxs: all in all seems less consistent with acute cva and more likely metabolic perhaps due to hypotension. Patient evaluated with Abdiel Lara via tele-neurology consult who recommended CTA head/neck which was performed and read as largely unremarkable by radiology. Sxs are mild and appear to continue to resolve. Will get MRI, monitor on tele and obtain echo in am. Will ask for neurology consult in am. Serial neuro exams overnight. Discussed with NSG and aspirin started for now. # lumbar stenosis: s/p L3/L4 lami/TLIF by Dr. Mejia, pain controlled, pt/ot to evaluate in am # hypotension: per patient her BP is chronically slightly low but appears she has been largely in the 120's systolic prior to this afternoon, will provide NS bolus and follow, could be underlying etiology for problem 1. Will check repeat hgb. # hyperglycemia: likely stress response, HgbA1c of 5.8, will monitor # Patient new to my care. Old records reviewed and summarized as above. Care plan reviewed with NSG and [facility] neurology as above. Further hx obtained from patients family present at bedside. > 45 min critical care time spent in evaluation of possible stroke including interpretation of labs/imaging and physical exam and coordination with other specialists.
[2018-08-03] MEDS: VARENICLINE TARTRATE 1 MG TAB PO SCH (20:48)
[2018-08-03] MEDS: FAMOTIDINE 20 MG TAB PO SCH (20:48)
[2018-08-03] MEDS: SENNOSIDES/DOCUSATE SODIUM TAB PO SCH (20:48)
[2018-08-04] MEDS ORDERED: NS 500 ML IV ONE ×2 (01:16→14:58)
[2018-08-04 05:20] LABS: PLATELET COUNT 203 10^3/uL (150-400)
[2018-08-04] MEDS ORDERED: NS 1,000 ML IV ONE (05:22)
[2018-08-04] MEDS ORDERED: NALOXONE HCL 0.4 MG/ML INJ IVP PRN (05:28)
[2018-08-04] MEDS: ACETAMINOPHEN 500 MG TAB PO SCH ×3 (05:55→20:40)
[2018-08-04] MEDS: CHOLECALCIFEROL VIT D3 1,000 UNITS TAB PO SCH (07:30)
[2018-08-04] MEDS: VARENICLINE TARTRATE 1 MG TAB PO SCH (07:30)
[2018-08-04] MEDS: ASPIRIN EC 81 MG TAB PO SCH (07:31)
[2018-08-04] MEDS: ENOXAPARIN 40 MG/0.4 ML SYR SC SCH (07:31)
[2018-08-04] MEDS: FAMOTIDINE 20 MG TAB PO SCH ×2 (07:31→20:40)
[2018-08-04] MEDS: SENNOSIDES/DOCUSATE SODIUM TAB PO SCH ×2 (07:32→20:40)
[2018-08-04] MEDS: NS 1,000 ML IV SCH (07:33)
--- NOTE | 2018-08-04 07:46 | NEUSURGPN ---
Date of Surgery: 08/03/18 Post Op Day: 1 Assessment/Plan: 57 yo female s/p L3/4 TLIF/laminectomy/PSF Stroke alert called postop on 08/03: Patient experienced double vision, dysarthria, and left sided decreased sensation. MRI brain: no evidence of acute or subacute infarct - neuro improved, speech difficulties and left sided numbness improved if not resolved - pain control - ATUL drain x 1, will remove tomorrow - PT/OT - wear brace when out of bed - appreciate medicine following, per note IM to consult neurology this am. Now on ASA - SCDs/TEDs, Lovenox to start today - please contact neurosurgery with any changes in neuro status/exam Discussed with Dr. Mejia. Subjective: Having back to right hip pain. Speech difficulties resolved. Left sided numbness improved. Objective: Awake. Alert. PERRL. EOMI Facial expression symmetrical Tongue in midline Speech fluent muscle strength 5/5 sensation intact Catheter Insertion Date: 08/03/18 - Physician Discussed Patient with Dr.: Mejia Neurosurgery Physical Exam - Vitals, I&O, Labs I and O 08/03/18 08/04/18 08/05/18 05:59 05:59 05:59 Intake Total 3422 2250 Output Total 2730 Balance 692 2250 Weight 81.647 kg Intake: Oral (ml) 1050 350 IV Intake (ml) 1400 IV Infused (ml) 972 1900 Ns 1,000 ml @ Wide Open 857 1800 IV ONCE ONE Rx#: [id number] ceFAZolin 2 GM/DEXTROSE 115 100 100 ml @ 200 mls/hr IV Q8H [facility] Rx#:[id number] Output: Urine (ml) 2500 Catheter 2500 Estimated Blood Loss (ml) 100 ATUL Drain Output (ml) 130 Right Back Shad Basilio 130 Other: Intake Quantity Yes Sufficient Vital Signs Temp Pulse Resp BP Pulse Ox 36.7 C 41 L 13 89/46 L 95 08/04/18 07:34 08/04/18 07:34 08/04/18 07:34 08/04/18 07:34 08/04/18 07:34 Laboratory Results 08/04/18 05:08 08/04/18 05:08 ICD10 Worksheet Patient Problems: Problems Problem Status Onset Back pain Acute
--- NOTE | 2018-08-04 10:24 | NEUROPROG ---
Assessment: [id number] - Neurology Consult: - CC: Dr. Burnett consulted neurology for blurred vision. Results placed in EMR for her review. - HPI: Pt had lumbar surgery for lumbar degenerative disease on 08/03/18. No complications and pt recovering well when later that day she developed blurred vision for 1 hour and then slurred speech and left arm/leg paresthesias. Brain MRI was obtained and showed no acute changes and no stroke. Pt reported her symptoms have resolved on 08/04/18 but she feels general fatigue. I saw the patient on 08/04/18. Her neurologic exam was normal. Unclear what caused her symptoms but may be atypical migraine or reaction to anesthesia. Symptoms now resolved. No further neurologic w/u needed, neurology will sign off. Pt can f/ u in neurology clinic 1-5 weeks after hospital discharge. - PMHx: lumbar and cervical surgery, anxiety/depression, pheochromocytoma - SHx: prior tobacco use FHx: cancer - ROS: Pt denied acute fever, total vision loss, active severe chest pain, respiratory failure, total body severe rash, total bowel/bladder incontinence, psychosis, active seizures, or active bleeding - O: VS reviewed General: Alert Eyes: Fundoscopic exam not able to visualize optic disks CV: Heart RRR, no murmur, no carotid bruit Lungs: Clear to auscultation bilaterally, no rhonchi or rales Neuro: - Mental: . Oriented x person/place/date . concentration appears normal . speech fluency/comprehension normal . memory appears normal . fund of knowledge appear intact - Cranial Nerves: . II: PERRL, VFFTC . III/IV/: EOMI, no nystagmus, normal smooth pursuits, no Ptosis . V: facial sensation intact to LT . VII: face symmetric to eye closure and smile . VIII: hearing intact to conversation . IX/X: uvula raises symmetrically . XI: SCM 5/5 B/L strength . XII: tongue protrudes midline w/nl strength - Motor: . Tone: normal tone in all 4 extremity . Strength: no pronator drift, strength 5/5 throughout (B/L delt, bic, tri, hand software intern, hf/he, df/pf) - Reflexes: B/L bic/BR/patella 2/4 - Sensory: all 4 extremity intact to light touch - Coord: [id number] wnl, KRISTY wnl, [id number] wnl - Gait: deferred - Labs: 08/03/18- CBC wnl, Chem Gluc 216 - Rads: 08/03/18- Head CT: no significant intracranial abnormality seen (I personally visualize the images on 08/03/18) - 08/03/18- Head/neck CTA: no significant findings - 08/03/18- Brain MRI wo: There is some minimal nonspecific white matter change seen along the superior posterior right frontal lobe, with no MR evidence of an acute or subacute infarction. - Assessment: 1. Transient blurred vision and slurred speech for > 1 hour on 08/03/18: Pt had lumbar surgery for lumbar degenerative disease on 08/03/18. No complications and pt recovering well when later that day she developed blurred vision for 1 hour and then slurred speech and left arm/leg paresthesias. Brain MRI was obtained and showed no acute changes and no stroke. Given length of symptoms > 1 hour with no ischemia seen on brain MRI makes TIA unlikely. CTA head/neck unremarkable on 08/03/18. Pt reported her symptoms have resolved on 08/04/18 but she feels general fatigue. Her neurologic exam was normal on 08/04/18. Unclear what caused her symptoms but may be atypical migraine or reaction to anesthesia. Symptoms now resolved. No further neurologic w/u needed, neurology will sign off. Pt can f/u in neurology clinic 1-5 weeks after hospital discharge. - 2. Lumbar degenerative disease with surgery on 08/03/18 - Plan: - No further inpatient neurology w/u needed, neurology will sign off - F/U in neurology clinic in 1-5 weeks after hospital discharge Objective: Vital Signs Temp Pulse Resp BP Pulse Ox 36.7 C 41 L 13 89/46 L 95 08/04/18 07:34 08/04/18 07:34 08/04/18 07:34 08/04/18 07:34 08/04/18 07:34 Laboratory Results 08/04/18 05:08 08/04/18 05:08 08/03/18 08/04/18 08/05/18 05:59 05:59 05:59 Intake Total 3422 2450 Output Total 2730 Balance 692 2450 Allergies/Adverse Reactions: No Known Allergies Allergy (Verified 08/01/18 11:00)
--- NOTE | 2018-08-04 10:28 | CPEKG ---
Test Reason : OPEN Blood Pressure : / mmHG Vent. Rate : 046 BPM Atrial Rate : 045 BPM P-R Int : 227 ms QRS Dur : 082 ms QT Int : 460 ms P-R-T Axes : 050 -15 -09 degrees QTc Int : 403 ms Sinus bradycardia Prolonged FL interval Borderline left axis deviation Confirmed by Santo Kaur ([id number]) on 08/04/2018 10:28:06 AM Referred By: Confirmed By:Santo Kaur
[2018-08-04] MEDS: oxyCODONE IR 15 MG TAB PO PRN ×3 (12:03→18:13)
--- NOTE | 2018-08-04 14:36 | ASMTCMCOM ---
CM Note CM Note Notes: Pt had planned L3/4 TLIF/laminectomy PSF. Pt has had complications including pain, BP. PT/OT to eval when pt medically stable. [facility] rec home. Chart review indicates pt has boyfriend and dghtr. CM to follow. D/c plan of care: TBD Date Signed: 08/04/2018 02:35 PM Electronically Signed By:JUANITA Be
[2018-08-04] MEDS ORDERED: METHOCARBAMOL 750 MG TAB ONE (14:42)
[2018-08-04] MEDS: METHOCARBAMOL 750 MG TAB PO PRN (14:45)
[2018-08-04] MEDS ORDERED: NS BOLUS 500 ML (Wide open) IV ONE (15:00)
--- NOTE | 2018-08-04 15:00 | HOSPPROG ---
Hospitalist Progress Note Assessment/Plan: #Concern for CVA: negative CTA, MRI. Neurology consulted. Echo pending. Likely from meli-operative medications. #Hypotension: multifactorial with opioids, muscle relaxants. Echo pending. H/H stable # lumbar stenosis: s/p L3/L4 lami/TLIF by Dr. Mejia, pain controlled, pt/ot # hyperglycemia: likely stress response, HgbA1c of 5.8, will monitor Subjective: tired. Objective: Vital Signs Temp Pulse Resp BP Pulse Ox 36.7 C 49 L 16 88/50 L 97 08/04/18 11:09 08/04/18 13:13 08/04/18 13:13 08/04/18 13:13 08/04/18 13:13 Laboratory Results 08/04/18 05:08 08/04/18 05:08 08/03/18 08/04/18 08/05/18 05:59 05:59 05:59 Intake Total 3422 2450 Output Total 2730 Balance 692 2450 - Time Spent With Patient Time Spent with Patient: greater than 25 minutes Time Spent with Patient: Greater than 25 minutes spent on this patients care, greater than 50% of time spent counseling, educating, and coordinating care regarding the above mentioned plan. - Physical Exam Constitutional: uncomfortable, other (fatigued) Eyes: PERRL Ears, Nose, Mouth, Throat: moist mucous membranes Cardiovascular: regular rate and rhythym, bradycardia Respiratory: no respiratory distress Gastrointestinal: normoactive bowel sounds Genitourinary: no bladder fullness, scales in urethra Psychiatric: interacting appropriately ICD10 Worksheet Patient Problems: Problems Problem Status Onset Back pain Acute
--- NOTE | 2018-08-04 18:20 | ECHO ---
[email or web address] [address] Main: [phone] Fax: Transthoracic Echocardiogram Name: LINA COTO MR#: [id number] Study Date: 08/04/2018 Study Time: 10:33 AM Date of : 1960 Age: 57 year(s) Height: 172.7 cm (68 in.) Weight: 81.65 kg (180 lb.) BSA: 1.95 m2 Gender: Female Examination: Echo with Agitated Saline Indication: ischemic stroke Image Quality: Adequate Contrast: Requested by: Skip Burnett BP: 89 mmHg/46 mmHg Heart Rate: Rhythm: Indication: ischemic stroke Procedure Staff Land Resource Specialist: Michelle Nolen [facility] Reading Physician: Marcial Vo MD Requesting Provider: Conclusions: Normal size left ventricle. No LV hypertrophy. Normal global systolic LV function. EF is 72 %. No regional wall motion abnormality. Normal diastolic LV function. Normal size right ventricle. An agitated saline study was performed and was negative for intracardiac shunting. The right atrium is normal in size. Trivial mitral valve regurgitation. The aortic valve is tri-leaflet. There is no significant aortic valve regurgitation. The tricuspid valve is normal in appearance and function. Trivial tricuspid valve regurgitation. There is no pulmonic regurgitation seen. Normal size ascending aorta measuring 3.0 cm. No pericardial effusion. Measurements: Chambers Valvular Assessment AV/MV Valvular Assessment TV/PV Normal Normal Normal Name Value Range Name Value Range Name Value Range Ao Damari (2D): 2.5 cm (1.4 cm-2.6 AV Vmax: 1.39 m/s (1 m/s-1.7 TR Vmax: 2.65 mm/s ( - ) cm) m/s) TR PGmax: 28 mmHg ( - ) IVSd (2D): 0.9 cm (0.6 cm-1.1 AV maxP mmHg ( - ) syst. PAP: 33 mmHg ( - ) cm) AV meanP mmHg ( - ) PV Vmax: 1.05 m/s (0.6 m/s-0.9 LVDd (2D): 4.2 cm (3.9 cm-5.3 ALEX (VTI): 3.0 cm ( - ) m/s) cm) MV E Vmax: 1.02 m/s ( - ) PV PGmax: 4 mmHg ( - ) LVDs (2D): 2.4 cm (2.1 cm-4 MV A Vmax: 0.83 m/s ( - ) cm) MV E/A: 1.23 ( - ) Patient: LINA COTO Study Date: 08/04/2018 Page 1 of 2 10:33 AM LVPWd (2D): 0.9 cm ( - ) MV PHT: 0.073 s ( - ) LVOTd 2.0 cm 2.0 cm mm MVA (PHT): 3.0 s ( - ) LVEF (BP): 72 % (>=55 %) RVDd(2D): 3.5 cm (1.9 cm-3.8 cmmm) Continued Measurements: Chambers Valvular Assessment AV/MV Valvular Assessment TV/PV Name Value Name Value Name Value LADs: 3.8 cm MV DecTime: 250 m/s CVP (est.): 5 mmHg LADs Lon.6 cm MV E' Septal: 0.10 m/s LA Area: 19.7 cm2 MV E/E' Septal: 10.40 LA Volume: 56 ml MV E/E' Lateral: 8.60 LA Volume Index: 28.7 ml/m2 RA Area: 17.5 cm2 Additional Vessels Name Value Ao Ascendin.0 cm Inferior Vena Cava: 1.9 cm Findings: Left Ventricle: Normal size left ventricle. No LV hypertrophy. Normal global systolic LV function. EF is 72 %. No regional wall motion abnormality. Normal diastolic LV function. Right Ventricle: Normal size right ventricle. Normal RV function. Left Atrium: The left atrium is normal in size. An agitated saline study was performed and was negative for intracardiac shunting. Right Atrium: The right atrium is normal in size. Mitral Valve: The mitral valve is normal in appearance and function. Trivial mitral valve regurgitation. No mitral stenosis is present. Aortic Valve: The aortic valve is tri-leaflet. There is no significant aortic valve regurgitation. No aortic valve stenosis is present. Tricuspid Valve: The tricuspid valve is normal in appearance and function. Trivial tricuspid valve regurgitation. The pulmonary artery pressure is normal. Right ventricular systolic pressure measures 33mmHg. Pulmonic Valve: The pulmonic valve is normal in appearance and function. There is no pulmonic regurgitation seen. Aorta: The aorta is normal. Normal size aortic root measuring 2.5 cm. Normal size ascending aorta measuring 3.0 cm. IVC: The IVC is normal sized. Pericardium: No pericardial effusion. No pleural effusion. (No Signature Object) Patient: LINA COTO Study Date: 08/04/2018 Page 2 of 2 10:33 AM [id number]
[2018-08-05] MEDS: METHOCARBAMOL 750 MG TAB PO PRN ×2 (01:54→13:33)
[2018-08-05] MEDS: NS 1,000 ML IV SCH (01:55)
[2018-08-05] MEDS: ACETAMINOPHEN 500 MG TAB PO SCH ×2 (04:56→12:59)
[2018-08-05] MEDS: oxyCODONE IR 5 MG TAB PO PRN ×3 (08:21→12:59)
[2018-08-05] MEDS: CHOLECALCIFEROL VIT D3 1,000 UNITS TAB PO SCH (08:21)
[2018-08-05] MEDS: ASPIRIN EC 81 MG TAB PO SCH (08:21)
[2018-08-05] MEDS: ENOXAPARIN 40 MG/0.4 ML SYR SC SCH (08:22)
[2018-08-05] MEDS: FAMOTIDINE 20 MG TAB PO SCH (08:22)
[2018-08-05] MEDS: SENNOSIDES/DOCUSATE SODIUM TAB PO SCH (08:22)
--- NOTE | 2018-08-05 09:10 | HOSPPROG ---
Hospitalist Progress Note Assessment/Plan: #Concern for CVA: symptoms from sedative medications perioperative. Negative imaging: CTH, CTA, MRI. Echo NL, no shunt, Neuro evaluated and no further testing needed #Hypotension: multifactorial with opioids, muscle relaxants. Echo normal. H/H stable #Lumbar stenosis: s/p L3/L4 lami/TLIF by Dr. Mejia. PT/OT # hyperglycemia: likely stress response, HgbA1c of 5.8, will monitor Will sign off. Please call if questions Subjective: walking with PT. No dizziness Objective: Vital Signs Temp Pulse Resp BP Pulse Ox 37.2 C 54 L 16 101/55 L 91 L 08/05/18 07:36 08/05/18 07:36 08/05/18 07:36 08/05/18 07:36 08/05/18 07:36 Laboratory Results 08/04/18 05:08 08/04/18 05:08 08/04/18 08/05/18 08/06/18 05:59 05:59 05:59 Intake Total 3422 4450 Output Total 6307 5572 Balance 692 -585 - Time Spent With Patient Time Spent with Patient: greater than 25 minutes Time Spent with Patient: Greater than 25 minutes spent on this patients care, greater than 50% of time spent counseling, educating, and coordinating care regarding the above mentioned plan. - Physical Exam Constitutional: no apparent distress, other (walking in room with walker) Eyes: PERRL Ears, Nose, Mouth, Throat: moist mucous membranes Cardiovascular: regular rate and rhythym Respiratory: no respiratory distress Gastrointestinal: normoactive bowel sounds Musculoskeletal: other (back brace on) Neurologic: AAOx3, CN II-XII Intact Psychiatric: not encephalopathic ICD10 Worksheet Patient Problems: Problems Problem Status Onset Back pain Acute
--- NOTE | 2018-08-05 11:05 | SOAPPROG ---
SOAP Progress Note Assessment/Plan: Assessment: 57 yo female POD #2 sp L3/4 TLIf doing well no further double vision Plan: dc home today after xrays done. DC ATUL prior to discharge 08/05/18 11:02 08/05/18 11:04 Subjective: awake, alert, pain controlled. Doing well overall Objective: Vital Signs Temp Pulse Resp BP Pulse Ox 37.2 C 54 L 16 101/55 L 91 L 08/05/18 07:36 08/05/18 07:36 08/05/18 07:36 08/05/18 07:36 08/05/18 07:36 Laboratory Results 08/04/18 05:08 08/04/18 05:08 08/04/18 08/05/18 08/06/18 05:59 05:59 05:59 Intake Total 3422 4450 240 Output Total 2730 5035 650 Balance 692 -585 -410 Neuro: JARVIS, sens +LT follows commands ambulatory Incision: CDI, glued ATUL: 60 ml removed today. ICD10 Worksheet Patient Problems: Problems Problem Status Onset Back pain Acute
--- NOTE | 2018-08-05 11:05 | ASMTCMCOM ---
CM Note CM Note Notes: PT and OT evals placed on hold due to pt having hypotension, bradycardia and high level of pain. CM will follow. D/C Plan: TBD Date Signed: 08/05/2018 11:04 AM Electronically Signed By:Kareen Lambert
--- NOTE | 2018-08-05 12:10 | ASDISCHSUM ---
Discharge Information Plan Status:Home with No Needs Medically Cleared to Leave: Discharge Date: CM D/C Disposition:Home, Routine, Self-Care ADT D/C Disposition:Home, Routine, Self-Care Projected Discharge Date: Transportation at D/C:Family Discharge Delay Reason: Follow-Up Date: Discharge Slot: Final Diagnosis: Placement Information Patient Contact Information Contact Name:KAVON Relationship:Other Address: City: [facility] Phone: State/Zip Code: Email: Financial Information Financial Class:Medicare Primary Plan Desc:MEDICARE INPATIENT Primary Plan Number:[id number] Secondary Plan Desc:[employer] Secondary Plan Number:[id number] Assessment Information [facility] CM Progress Note CM Note CM Note Notes: Pt had planned L3/4 TLIF/laminectomy PSF. Pt has had complications including pain, BP. PT/OT to eval when pt medically stable. [facility] [place] rec home. Chart review indicates pt has boyfriend and dghtr. CM to follow. D/c plan of care: TBD Date Signed: 08/04/2018 02:35 PM Electronically Signed By:JUANITA Be [facility] CM Progress Note CM Note CM Note Notes: PT and OT evals placed on hold due to pt having hypotension, bradycardia and high level of pain. CM will follow. D/C Plan: TBD Date Signed: 08/05/2018 11:04 AM Electronically Signed By:Kareen Lambert Intervention Information Intervention Type:*IM-Signed Date of Service:08/04/2018 03:06 PM Patient Type:Inpatient Staff Member:Shea Camacho Hours: Discipline: Severity: Comment:
--- NOTE | 2018-08-05 12:11 | ASMTLACE ---
MYLENE Length of stay for Answers: 2 days current admission Acuity / Level of Answers: Yes Care: Did the patient have an inpatient admission? Comorbidities - select Answers: Opioid dependence all that apply / Chronic pain # of Emergency department Answers: 0 visits in the last 6 months Social determinants Answers: Mental health diagnosis (anxiety, depression, pers onality disorders, etc.) Score: 12 Date Signed: 08/05/2018 12:10 PM Electronically Signed By:Kareen Lambert
[2018-08-05 15:32] VITALS: BP 98/48
== END 2018-08-05 16:58 | disposition home or self-care (01) | DRG 455 ==
LOC: F3N 04:58
PROVIDERS: ADMIT Neurological Surgery; ATTEND Neurological Surgery
DX: M48.061 Spinal stenosis, lumbar region without neurogenic claudication (principal); M54.16 Radiculopathy, lumbar region; F32.9 Major depressive disorder, single episode, unspecified; F41.9 Anxiety disorder, unspecified; R73.9 Hyperglycemia, unspecified; H53.2 Diplopia; R47.1 Dysarthria and anarthria; R20.9 Unspecified disturbances of skin sensation; Z98.1 Arthrodesis status; Z23 Encounter for immunization
CPT/HCPCS: 82435-PO; 82565-PO; 82947-PO; 84132-PO; 84295-PO; 84520-PO; 85014-PO; 92523-GN; 97161-GP; 97165-GO; C1713; G0008; G8978-GP-CI; G8979-GP-CI; G8980-GP-CI; G8987-GO-CI; G8988-GO-CI; G8989-GO-CI; G9168-GN-CH; G9169-GN-CH; G9170-GN-CH; J0690; J1100; J1650; J2250; J2270; J2274; J2405; J2704; J2710; J2800; J3010; J3360; Q9967

== ENCOUNTER → 2019-02-19 | Outpatient (CLI) | payer OTHER, MEDICAID | LOC: BHFA 09:30 ==